=== PATIENT | female | born 1975 | race Caucasian/White ===

== ENCOUNTER 2018-12-10 16:43 | Emergency (ER) | payer OTHER ==
[~2018-12-10] VITALS: Ht 157.5 cm; Wt 85.7 kg
[2018-12-10 17:38] VITALS: Ht 157.5 cm; Wt 85.7 kg
[2018-12-10 20:39] VITALS: BP 145/88
== END 2018-12-10 20:39 | disposition home or self-care (01) ==
LOC: ED 16:43
DX: J20.9 Acute bronchitis, unspecified (principal)